=== PATIENT | female | born 1980 ===

== ENCOUNTER 2019-02-04 18:57 | Outpatient (CLI) | payer OTHER ==
--- NOTE | 2019-02-05 12:17 | Ultrasound Report ---
Reason: LOCALIZED SWELLING,MASS AND LUMP,NECK Procedure Date: 02/04/2019 Accession Number: [id number] / [id number] Procedure: US - Head or Neck Soft Tissue CPT Code: FULL RESULT: EXAM: NECK ULTRASOUND EXAM DATE: 02/04/2019 07:10 PM. CLINICAL HISTORY: Localized swelling, mass and lump, neck. COMPARISON: None. TECHNIQUE: Real-time sonographic imaging was performed by the [facility] utilizing color-flow. Multiple billing representative static images were saved for review. FINDINGS: The patient reports a history of a localized swelling with palpable mass and lump on the right side of the neck at the level of the thyroid. The area of interest was interrogated with grayscale and limited color Doppler. Lateral to the carotid artery at the level of the thyroid gland is a 0.4 cm calcification. The visualized carotid artery is patent by color Doppler. The expected adjacent jugular vein is not visualized on submitted images. This is potentially a result of technique and focus of the examination. IMPRESSION: 0.4 cm calcification lateral to the right carotid artery at the level of the thyroid gland. Findings of calcifications such as the one in question are sometimes made with venous occlusion. Unless the status of the right jugular vein is known, recommend verification of patency of the right jugular vein. For this purpose, the patient could return to the department for additional imaging of the right neck for completion of this examination. An addendum will be issued if the patient returns for additional imaging. [facility]
== END 2019-02-04 18:58 | disposition home or self-care (01) ==
LOC: DI 18:57
PROVIDERS: ATTEND Nurse Practitioner
DX: R22.1 Localized swelling, mass and lump, neck (principal)
CPT/HCPCS: 76536

== ENCOUNTER 2019-02-06 12:43 | Outpatient (CLI) | payer OTHER ==
--- NOTE | 2019-02-08 12:35 | Ultrasound Report ---
Reason: LOCALIZED SWELLING,MASS AND LUMP,NECK Procedure Date: 02/06/2019 Accession Number: [id number] / [id number] Procedure: US - Head or Neck Soft Tissue CPT Code: FULL RESULT: EXAM: THYROID ULTRASOUND EXAM DATE: 02/06/2019 01:03 PM. CLINICAL HISTORY: Localized swelling, mass and lump, neck. COMPARISON: HEAD OR NECK SOFT TISSUE 02/04/2019 7:00 PM. TECHNIQUE: Real time sonographic imaging of the thyroid was performed by the senior principal process engineer. Multiple telephone service representative static images were saved for review. FINDINGS: This study is interpreted as part of the initial imaging study performed 02/04/2019 under accession [id number]. Additional imaging is performed which demonstrates a patent right jugular vein and carotid artery at the level of the thyroid gland by limited color Doppler with spectral tracing of the jugular vein demonstrating expected waveform as well as arterial aliasing. Images of the jugular vein do not definitely replicate the previously characterized calcification but show the relationship of the jugular vein to be anterior to the carotid artery and immediately adjacent to the thyroid gland. The calcification in question is lateral to the carotid artery with the carotid artery interposed between the calcification and the thyroid gland. IMPRESSION: Patent right jugular vein. The calcification corresponding to the patient's palpable lump remains nonspecific and should be treated as a finding separate from and independent of the jugular vein. [facility]
== END 2019-02-06 12:44 | disposition home or self-care (01) ==
LOC: DI 12:43
PROVIDERS: ATTEND Nurse Practitioner
DX: R22.1 Localized swelling, mass and lump, neck (principal)
CPT/HCPCS: 76536

== ENCOUNTER 2020-04-13 10:49 | Outpatient (CLI) | payer OTHER ==
[2020-04-13 15:17] LABS: BASOPHILS # (AUTO) 0.1 10^3/uL (0.0-0.1); BASOPHILS % (AUTO) 1.3 %; EOSINOPHILS # (AUTO) 0.2 10^3/uL (0.0-0.7); EOSINOPHILS % (AUTO) 5.4 %; LYMPHOCYTES # (AUTO) 1.4 10^3/uL (1.5-3.5); LYMPHOCYTES % (AUTO) 35.7 %; MEAN CORPUSCULAR HEMOGLOBIN 29.3 pg (27.0-31.0); MEAN CORPUSCULAR HGB CONC 32.3 g/dL (32.0-36.0); MEAN CORPUSCULAR VOLUME 90.8 fL (81.0-99.0); MONOCYTES # (AUTO) 0.3 10^3/uL (0.0-1.0); MONOCYTES % (AUTO) 7.7 %; NEUTROPHILS % (AUTO) 49.6 %; PLT - PLATELET COUNT 227 10^3/uL (130-450); RED BLOOD COUNT 4.44 10^6/uL (4.20-5.40); RED CELL DISTRIBUTION WIDTH 12.8 % (12.0-15.0); WHITE BLOOD COUNT 3.9 x10^3/uL (4.8-10.8)
[2020-04-13 16:01] LABS: ALBUMIN 4.5 g/dL (3.2-5.5); ALBUMIN/GLOBULIN RATIO 1.6 (1.0-2.2); BILIRUBIN,TOTAL 0.4 mg/dL (0.2-1.0); CALCIUM 9.2 mg/dL (8.5-10.3); CREATININE 0.5 mg/dL (0.4-1.0); TOTAL PROTEIN 7.4 g/dL (6.7-8.2)
== END 2020-04-13 10:50 | disposition home or self-care (01) ==
LOC: LAB.S 10:49
PROVIDERS: ATTEND Registered Nurse
DX: Z13.228 Encounter for screening for other metabolic disorders (principal); Z13.29 Encounter for screening for other suspected endocrine disorder; Z13.0 Encounter for screening for diseases of the blood and blood-forming organs and certain disorders involving the immune mechanism
CPT/HCPCS: 36415; 80053; 84443; 85025

== ENCOUNTER 2021-01-12 10:28 | Outpatient (CLI) | payer OTHER ==
--- NOTE | 2021-01-13 13:19 | Ultrasound Report ---
PROCEDURE: Head or Neck Soft Tissue INDICATIONS: DECREASED THYROID STIMULATING HORMONE LEVEL TECHNIQUE: Real-time scanning was performed of the thyroid gland, with image documentation. COMPARISON: Head and neck ultrasound 02/04/2019, 02/06/2019 FINDINGS: Right: Thyroid lobe measures 5.4 x 1.3 x 1.7 cm, and is homogeneous in echotexture. Left: Thyroid lobe measures 5.2 x 1.2 x 1.8 cm, and is homogenous in echotexture. Isthmus: 4 mm thick. Miscellaneous: Previous calcification noted on prior ultrasounds are not visualized. Nodule number: One Location: Isthmus Size: 0.8 x 0.3 x 0.9 cm. Composition: Cyst Echogenicity: And Shape: wider than tall. Margins: Smooth Echogenic foci: None Total points: 0 ACR TI-RADS category: 1 Nodule number: Two Location: Isthmus/left lobe Size: 1.2 x 0.6 x 1.2 cm. Composition: Predominant solid Echogenicity: Hypoechoic Shape: wider than tall. Margins: Smooth Echogenic foci: None Total points: 4 ACR TI-RADS category: 4 IMPRESSION: 1. Lesion 1 is considered category 1 and no additional follow-up. 2. Lesion 2 is considered category 4. Secondary to size, follow-up imaging at 1, 2, 3 and 5 years is recommended. 3. Previously noted calcification on prior ultrasound is not visualized. ACR TI-RADS definitions and recommendations: TI-RADS 1 (benign): 0 points. FNA not needed. TI-RADS 2 (not suspicious): 2 points. FNA not needed. TI-RADS 3 (mildly suspicious): 3 points. ? FNA if 2.5 cm or larger, follow up if 1.5 cm or larger (at 1, 3, and 5 years). TI-RADS 4 (moderately suspicious): 4-6 points. ? FNA if 1.5 cm or larger, follow up if 1 cm or larger (at 1, 2, 3, and 5 years). TI-RADS 5 (highly suspicious): 7 points or more. ? FNA if 1 cm or larger, follow up if 0.5 cm or larger (every year for 5 years). Reviewed by: Marian Hurtado MD on 01/13/2021 1:18 PM PDT Approved by: Marian Hurtado MD on 01/13/2021 1:18 PM PDT Station ID: [id number]
== END 2021-01-12 10:29 | disposition home or self-care (01) ==
LOC: DI 10:28
PROVIDERS: ATTEND Nurse Practitioner Family
DX: E04.2 Nontoxic multinodular goiter (principal)

== ENCOUNTER 2023-10-10 11:26 | Outpatient (CLI) | payer OTHER ==
--- NOTE | 2023-10-10 15:40 | Ultrasound Report ---
PROCEDURE: Soft Tissue Head or Neck INDICATIONS: THYROID NODULE TECHNIQUE: Real-time scanning was performed of the thyroid gland, with image documentation. COMPARISON: 01/12/2021 FINDINGS: Right: Thyroid lobe measures 4.9 x 1.4 x 1.5 cm, and is homogeneous in echotexture. Left: Thyroid lobe measures 5.2 x 1.3 x 1.8 cm, and is homogenous in echotexture. Isthmus: 0.3 cm thick. Multiple subcentimeter nodules are identified, none requiring dedicated follow-up imaging per guideli jaimee below. The previous left superior isthmus nodule is smaller. IMPRESSION: No suspicious thyroid nodules. ACR TI-RADS definitions and recommendations: TI-RADS 1 (benign): 0 points. FNA not needed. TI-RADS 2 (not suspicious): 2 points. FNA not needed. TI-RADS 3 (mildly suspicious): 3 points. "FNA if 2.5 cm or larger, follow up if 1.5 cm or larger (at 1, 3, and 5 years). TI-RADS 4 (moderately suspicious): 4-6 points. "FNA if 1.5 cm or larger, follow up if 1 cm or larger (at 1, 2, 3, and 5 years). TI-RADS 5 (highly suspicious): 7 points or more. "FNA if 1 cm or larger, follow up if 0.5 cm or larger (every year for 5 years). Reviewed by: Jose Sher MD on 10/10/2023 3:38 PM PST Approved by: Jose Sher MD on 10/10/2023 3:38 PM PST Station ID: [id number]
== END 2023-10-10 11:27 | disposition home or self-care (01) ==
LOC: DI 11:26
PROVIDERS: ATTEND Registered Nurse
DX: E04.1 Nontoxic single thyroid nodule (principal)

== ENCOUNTER 2023-11-26 15:46 | Outpatient (CLI) | payer OTHER ==
--- NOTE | 2023-11-27 07:25 | Ultrasound Report ---
PROCEDURE: Pelvic w/Transvaginal INDICATIONS: UTERINE HYPERTROPHY TECHNIQUE: Real-time scanning was performed of the pelvic organs, with image documentation. Additional endovagi nal scanning was necessary due to incomplete visualization of the adnexal and endometrial structures by transabdominal scanning. COMPARISON: None. FINDINGS: Uterus: Uterus is anteverted and normal in size at 8.3 x 4.2 x 5.8 cm. The myometrium is homogeneou s. The endometrium measures 1.0 mm in combined thickness. There is a left posterior intramural fibr oid which measures 0.6 x 0.8 x 0.7 cm. Multiple small cysts are present in the endocervix. Ovaries: The right ovary measures 3.5 x 2.2 x 1.4 cm, with a calculated ovarian volume of 5.6 cc. T he left ovary measures 3.6 x 2.2 x 2.2 cm, with a calculated ovarian volume of 9.2 cc. The ovaries h ave a normal sonographic appearance. There are greater than 12 follicles in the right ovary. No adn exal masses are seen. No cystic lesions measuring greater than 3 cm. There is a 1.7 x 1.6 x 1.9 cm le ft corpus luteal cyst. Other: No pathologic free abdominal or pelvic fluid. There is incidentally noted ectatic gonadal ves sels at the left adnexa. IMPRESSION: 1. Small uterine fibroid. 2. Greater than 12 ovarian follicles in the right ovary. This finding can be associated with PCOS in the setting of ovulatory dysfunction. Please correlate clinically. 3. Ectatic sided gonadal vessels which can be associated with pelvic congestion. Reviewed by: Juju Kimble MD on 11/27/2023 7:24 AM PDT Approved by: Juju Kimble MD on 11/27/2023 7:24 AM PDT Station ID: [id number]
== END 2023-11-26 15:47 | disposition home or self-care (01) ==
LOC: DI 15:46
PROVIDERS: ATTEND Obstetrics & Gynecology
DX: N85.2 Hypertrophy of uterus (principal); N92.0 Excessive and frequent menstruation with regular cycle; D25.1 Intramural leiomyoma of uterus; R93.89 Abnormal findings on diagnostic imaging of other specified body structures

== ENCOUNTER 2024-05-20 08:31 | Day surgery (SDC) | payer OTHER ==
[2024-05-20 08:55] LABS: HCG UR QUAL NEGATIVE
[2024-05-20] MEDS: LACTATED RINGERS 1,000 ML IV ONE ×2 (09:14→11:30)
--- NOTE | 2024-05-20 10:07 | ANESTHESIA ---
Pre-Anesthesia VS, & Labs - Diagnosis screening - Procedure colonoscopy Vital Signs: Temp Pulse Resp BP Pulse Ox O2 Flow Rate 36.6 C 72 16 120/76 100 05/20/24 09:00 05/20/24 09:00 05/20/24 09:00 05/20/24 09:00 05/20/24 09:00 Height: 5 ft 2 in Weight (kg): 48.4 kg Body Mass Index: 19.5 BMI Classification: Normal - NPO >8 hours Last Fluid Intake: am prep - Is Patient ?: No - Lab Results Lab results reviewed: Yes Home Medications and Allergies Home Medications: Ambulatory Orders Buspirone HCl 7.5 mg PO BID PRN 05/14/24 Cholecalciferol [Vitamin D3] 25 mcg PO DAILY 05/14/24 Collagen/Biotin/Ascorbic Acid [Collagen 1500 Plus C Capsule] 1 each PO DAILY 05/14/24 Ibuprofen [Motrin] 600 mg PO Q6H PRN 05/14/24 [place]-3S/Dha/Epa/Fish Oil [Fish Oil 1,200 mg Softgel] 1 each PO DAILY 05/14/24 Vitamin E (Dl,Tocopheryl Acet) [Vitamin E] 1,000 unit PO DAILY 05/14/24 Buspirone HCl 7.5 mg PO BID PRN 05/14/24 Cholecalciferol [Vitamin D3] 25 mcg PO DAILY 05/14/24 Collagen/Biotin/Ascorbic Acid [Collagen 1500 Plus C Capsule] 1 each PO DAILY 05/14/24 Ibuprofen [Motrin] 600 mg PO Q6H PRN 05/14/24 [place]-3S/Dha/Epa/Fish Oil [Fish Oil 1,200 mg Softgel] 1 each PO DAILY 05/14/24 Vitamin E (Dl,Tocopheryl Acet) [Vitamin E] 1,000 unit PO DAILY 05/14/24 Allergies/Adverse Reactions: Allergies Allergy/AdvReac Type Severity Reaction Status Date / Time bacitracin Allergy Rash Verified 05/14/24 16:00 [From Neosporin ([id number])] neomycin Allergy Rash Verified 05/14/24 16:00 [From Neosporin ([id number])] polymyxin B Allergy Rash Verified 05/14/24 16:00 [From Neosporin ([id number])] Anes History & Medical History - Anesthetic History Anesthesia Complications: reports: No previous complications Family history of Anesthesia Complications: Denies Family history of Malignant Hyperthermia: Denies - Medical History Cardiovascular: reports: None Pulmonary: reports: None Gastrointestinal: reports: GERD, Other Urinary: reports: None Musculoskeletal: reports: None Endocrine/Autoimmune: reports: None Skin: reports: Other History of Cancer?: No - Surgical History Other Past Surgical History: wisdom teeth Exam General: Alert, Oriented x3, Cooperative Dental: WNL Mouth Openin Fingerbreadth Neck Mobility: Normal Mallampati classification: II Thyromental Distance: 4-6 cm Respiratory: Lungs clear, Normal breath sounds, No respiratory distress Cardiovascular: Regular rate Neurological: Normal speech Mental/Cognitive Status: Alert/Oriented X3, Normal for patient Cognitive Status: Within normal limits Plan Anesthesia Type: Total IV Consent for Procedure(s) Verified and Reviewed: Yes Code Status: Attempt Resuscitation ASA classification: 2-Mild systemic disease Is this case an emergency?: No
[2024-05-20] MEDS ORDERED: MIDAZOLAM 2 MG/2 ML VIAL ONE (10:22)
[2024-05-20] MEDS ORDERED: PROPOFOL 500 MG/50 ML 500 MG/50 ML VIAL ONE (10:52)
--- NOTE | 2024-05-20 11:30 | ANESTHESIA POST OP EVALUATION ---
Anesthesia Post Eval - Post Anesthesia Eval Vitals: Last Vital Signs Temp 36.6 C 05/20/24 10:57 Pulse 52 L 05/20/24 11:15 Resp 16 05/20/24 11:15 BP 109/69 05/20/24 11:15 Pulse Ox 100 05/20/24 11:15 O2 Flow Rate CV Function Including HR & BP: Stable Pain Control: Satisfactory Nausea & Vomiting: Negative Mental Status: Baseline Respiratory Status: Airway Patent Hydration Status: Satisfactory Anesthesia Complications: None (unable to complete c-scope d/t narrowing. CT in PACU per MD order)
[2024-05-20] MEDS ORDERED: DIATRIZOATE MEGLU/DIATRIZO SOD 30 ML BOTTLE PO ONE (11:32)
[2024-05-20] MEDS: iohexoL-300 100 ML VIAL IVP ONE (12:18)
[2024-05-20] MEDS: DIATRIZOATE MEGLU/DIATRIZO SOD 30 ML BOTTLE PO ONE (12:18)
--- NOTE | 2024-05-20 12:29 | CT Report ---
PROCEDURE: Abdomen/Pelvis WO INDICATIONS: INCOMPLETE COLONSCOPY TECHNIQUE: A CT scan of the abdomen and pelvis was performed without the use of intravenous contrast. Images we re recorded and evaluated at appropriate window settings. Reformats: coronal and sagittal. For radiat ion dose reduction, the following was used: automated exposure control, adjustment of mA and/or kV ac cording to patient size. COMPARISON: None. FINDINGS: Image quality: Diagnostic. Lower chest: Unremarkable. Liver: No contour-deforming mass. Gallbladder: Probable noncalcified gallbladder stone. No gallbladder wall thickening. Biliary tree: No intrahepatic or extrahepatic dilation, accounting for age. Spleen: No splenomegaly. Pancreas: No pancreatic ductal dilation. Adrenals: No adrenal nodule. Kidneys and ureters: Punctate nonobstructing bilateral renal stones. No hydronephrosis. Stomach, bowel and peritoneum: A rectal catheter is present, and contrast has been injected into the colon in a retrograde manner. Contrast fills the colon with some reflux into the terminal ileum. No o bstructing or constricting lesions. There is intraluminal material in the tip of the cecum. This most likely represents debris. However, polypoid sessile lesions at the tip of the cecum are not excluded . For instance, reference coronal image 56 of series 5. Lymph nodes: No central or retroperitoneal adenopathy. Vessels: No infrarenal aortic aneurysm. Reproductive organs: Unremarkable. Bladder: Bladder wall thickness is normal, accounting for underdistention. No calcified bladder stone s. Pelvic lymph nodes: No adenopathy by size criteria. Bones: No aggressive osseous abnormality. Other: No significant ventral or inguinal hernia. IMPRESSION: 1. Cecal debris versus sessile cecal polyps at the tip of the cecum. 2. Punctate bilateral nephrolithiasis. 3. Probable cholelithiasis Comment: Consider repeat imaging in the prone position to exclude persistent lesions of the cecal tip . Reviewed by: Bunny Rod MD on 05/20/2024 12:28 PM PDT Approved by: Bunny Rod MD on 05/20/2024 12:28 PM PDT Station ID: [id number]
[2024-05-20 13:27] VITALS: BP 113/67; O2SAT 98
== END 2024-05-20 08:32 | disposition home or self-care (01) ==
LOC: SDS 08:31
PROVIDERS: ATTEND Surgery
PROC: 0DJD8ZZ Inspection of Lower Intestinal Tract, Via Natural or Artificial Opening Endoscopic (ICD-10-PCS; principal; 2024-05-20 10:00)
DX: K58.0 Irritable bowel syndrome with diarrhea (principal); R10.9 Unspecified abdominal pain; K21.9 Gastro-esophageal reflux disease without esophagitis
CPT/HCPCS: 45330; 74176; 81025; J7120; Q9963